=== PATIENT | male | born 1975 ===

== ENCOUNTER 2017-11-22 21:07 | Emergency (ER) | payer SELFPAY ==
[2017-11-22 21:38] VITALS: BP 107/80; PULSE 101; RESP 18; TEMP 99.1; O2SAT 98
[2017-11-22] MEDS ORDERED: Sodium Chloride 0.9% 1,000 ML IV STA (21:51)
--- NOTE | 2017-11-22 21:54 | ED PDOC ---
HPI: Abdomen Time Seen by Provider: 11/22/17 21:41 Chief Complaint (Nursing): Abdominal Pain Chief Complaint (Provider): abdominal pain History Per: Patient History/Exam Limitations: no limitations Onset/Duration Of Symptoms: Days (2) Current Symptoms Are (Timing): Still Present Location Of Pain/Discomfort: Diffuse Associated Symptoms: Nausea, Vomiting Additional Complaint(s): 42 y/o male presents with abdominal pain x 2 days. Associated vomiting x 2. Denies fever, chest pain, shortness of breath, palpitations, changes in bowel movements, urinary symptoms. Patient also reports low back pain x 1 month, with associated radiation of pain down left leg. Patient was advised by his primary doctor to see a specialist but he has not yet done so. Denies bowel/bladder incontinence, numbness/ weakness lower extremities, limitation of movemenet. Past Medical History Reviewed: Historical Data, Nursing Documentation, Vital Signs Vital Signs: Last Vital Signs Temp 99.1 F 11/22/17 21:34 Pulse 101 H 11/22/17 21:34 Resp 18 11/22/17 21:34 BP 107/80 11/22/17 21:34 Pulse Ox 98 11/23/17 00:32 - Medical History PMH: Diabetes - Surgical History Surgical History: No Surg Hx - Family History Family History: States: No Known Family Hx - Home Medications Home Medications: Ambulatory Orders Medication Instructions Recorded Famotidine [Pepcid] 20 mg PO BID #10 tab 11/23/17 Ondansetron [Zofran] 4 mg PO Q8H PRN #10 tab 11/23/17 - Allergies Allergies/Adverse Reactions: Allergies Allergy/AdvReac Type Severity Reaction Status Date / Time No Known Allergies Allergy Verified 11/22/17 21:34 Review of Systems ROS Statement: Except As Marked, All Systems Reviewed And Found Negative Gastrointestinal: Positive for: Nausea, Vomiting, Abdominal Pain Musculoskeletal: Positive for: Back Pain Physical Exam - Reviewed Nursing Documentation Reviewed: Yes Vital Signs Reviewed: Yes - Physical Exam Appears: Positive for: Well, Non-toxic, No Acute Distress Head Exam: Positive for: ATRAUMATIC, NORMAL INSPECTION, NORMOCEPHALIC Skin: Positive for: Normal Color Eye Exam: Positive for: Normal appearance ENT: Positive for: Normal ENT Inspection Cardiovascular/Chest: Positive for: Regular Rate, Rhythm Respiratory: Positive for: Normal Breath Sounds Gastrointestinal/Abdominal: Positive for: Bowel Sounds, Soft, Tenderness ( epigastric, periumbilical) Back: Positive for: Normal Inspection Extremity: Positive for: Normal ROM Neurologic/Psych: Positive for: Alert, Oriented - Laboratory Results Result Diagrams: 11/22/17 22:15 11/22/17 22:15 - ECG ECG: Positive for: Viewed By Me (reviewed by ED attending) ECG Rhythm: Positive for: Sinus Rhythm O2 Sat by Pulse Oximetry: 98 - Progress ED Course And Treament: labs, urine, ekg, ct abd/pelvis, IV fluids, ODT zofran EXAM: CT Abdomen and Pelvis With Intravenous Contrast CLINICAL HISTORY: 42 years old, male; Pain and signs and symptoms; Nausea and vomiting; Abdominal pain; Other: Back pain; Additional info: Abd pain, vomiting TECHNIQUE: Axial computed tomography images of the abdomen and pelvis with intravenous contrast. All CT scans at this facility use one or more dose reduction techniques, viz.: automated exposure control; ma/kV adjustment per patient size (including targeted exams where dose is matched to indication; i.e. head); or iterative reconstruction technique. Coronal and sagittal reformatted images were created and reviewed. CONTRAST: 95 mL of [id number] administered intravenously. COMPARISON: No relevant prior studies available. FINDINGS: Limitations: Motion artifact - mild. Lung bases: No acute findings. ABDOMEN: Liver: Unremarkable. No mass. Gallbladder and bile ducts: No calcified stones. No ductal dilation. Pancreas: No ductal dilation. No mass. Spleen: No splenomegaly. Adrenals: No mass. Kidneys and ureters: No mass. No hydronephrosis. Stomach and bowel: No definite mural thickening. No obstruction. PELVIS: Appendix: Normal caliber. No inflammation. Bladder: Unremarkable. Reproductive: Mildly enlarged prostate. ABDOMEN and PELVIS: Intraperitoneal space: No significant fluid collection. No free air. Bones/joints: Early to mild degenerative changes of hip joints. Early degenerative changes of spine. No acute fracture. Soft tissues: Small umbilical hernia containing fat. Small LEFT inguinal hernia containing fat. Vasculature: Unremarkable. No aneurysm. Lymph nodes: No pathologically enlarged lymph nodes. IMPRESSION: 1. No definite acute intraabdominal abnormality. 2. Prostate enlargement. Followup as clinically warranted. 3. Incidental/non-acute findings are described above. On re-eval, patient states he is feeling better. Tolerating PO. Patient educated on findings, discharged with rx Pepcid, Zofran Advised follow up PMD 2-3 days. Fluids. [place] diet Return precautions given Disposition - Clinical Impression Clinical Impression: Abdominal pain - Patient ED Disposition Is Patient to be Admitted: No Counseled Patient/Family Regarding: Studies Performed, Diagnosis, Need For Followup, Rx Given - Disposition Referrals: [facility] [Outside] Disposition: Routine/Home Disposition Time: 01:28 Condition: IMPROVED Prescriptions: Famotidine [Pepcid] 20 mg PO BID #10 tab Ondansetron [Zofran] 4 mg PO Q8H PRN #10 tab PRN Reason: Nausea/Vomiting Instructions: Acute Abdomen (Belly Pain), Adult (DC) Forms: App47 (English) Print Language: ICELANDIC
[2017-11-22 22:32] LABS: BASO % 0.2 % (0.0-2.0); EOS % 0.6 % (0.0-4.0); HEMOGLOBIN 13.9 g/dL (12.0-18.0); LYMPH # 0.8 K/uL (1.0-4.3); LYMPH % 13.8 % (20.0-40.0); MEAN PLATELET VOLUME 9.6 fl (7.2-11.7); MONO # 0.5 K/uL (0.0-0.8); MONO % 8.5 % (0.0-10.0); NEUT # 4.6 K/uL (1.8-7.0); NEUT % 76.9 % (50.0-75.0); NRBC % 0.1 % (0.0-0.0); RBC 4.8 Mil/uL (4.40-5.90); RED CELL DISTRIBUTION WIDTH 13.7 % (11.5-14.5); WHITE BLOOD COUNT 5.9 K/uL (4.8-10.8)
[2017-11-22 22:33] LABS: ALB/GLOB RATIO 1.2 (1.0-2.1); ALBUMIN 3.8 g/dL (3.5-5.0); ALT/SGPT 50 U/L (21-72); AST/SGOT 22 U/L (17-59); BLOOD UREA NITROGEN 19 mg/dl (9-20); GFR AFRICAN-AMERICAN > 60; GFR NON-AFRICAN AMERICAN > 60; LIPASE 82 U/L (23-300)
[2017-11-22 23:00] LABS: INR 1.2 (0.9-1.2); PARTIAL THROMBOPLASTIN TIME 50.5 Seconds (25.6-37.1); PROTHROMBIN TIME 13.6 Seconds (9.8-13.1)
[2017-11-22] MEDS ORDERED: Sodium Chloride 0.9% 50 ML IV ONE (23:16)
[2017-11-22] MEDS ORDERED: Iohexol 300 100 ML IJ ONE (23:16)
--- NOTE | 2017-11-23 00:17 | CT ---
EXAM: CT Abdomen and Pelvis With Intravenous Contrast CLINICAL HISTORY: 42 years old, male; Pain and signs and symptoms; Nausea and vomiting; Abdominal pain; Other: Back pain; Additional info: Abd pain, vomiting TECHNIQUE: Axial computed tomography images of the abdomen and pelvis with intravenous contrast. All CT scans at this facility use one or more dose reduction techniques, viz.: automated exposure control; ma/kV adjustment per patient size (including targeted exams where dose is matched to indication; i.e. head); or iterative reconstruction technique. Coronal and sagittal reformatted images were created and reviewed. CONTRAST: 95 mL of administered intravenously. COMPARISON: No relevant prior studies available. FINDINGS: Limitations: Motion artifact - mild. Lung bases: No acute findings. ABDOMEN: Liver: Unremarkable. No mass. Gallbladder and bile ducts: No calcified stones. No ductal dilation. Pancreas: No ductal dilation. No mass. Spleen: No splenomegaly. Adrenals: No mass. Kidneys and ureters: No mass. No hydronephrosis. Stomach and bowel: No definite mural thickening. No obstruction. PELVIS: Appendix: Normal caliber. No inflammation. Bladder: Unremarkable. Reproductive: Mildly enlarged prostate. ABDOMEN and PELVIS: Intraperitoneal space: No significant fluid collection. No free air. Bones/joints: Early to mild degenerative changes of hip joints. Early degenerative changes of spine. No acute fracture. Soft tissues: Small umbilical hernia containing fat. Small LEFT inguinal hernia containing fat. Vasculature: Unremarkable. No aneurysm. Lymph nodes: No pathologically enlarged lymph nodes. IMPRESSION: 1. No definite acute intraabdominal abnormality. 2. Prostate enlargement. Followup as clinically warranted. 3. Incidental/non-acute findings are described above.
--- NOTE | 2017-11-23 13:48 | CARD ---
APPROVED REPORT EKG Measurement Heart [id number] <Conclusion> Normal sinus rhythm Normal ECG
== END 2017-11-23 01:35 | disposition home or self-care (01) ==
LOC: H.ER 21:07 → EDBD 21:07 → H.ER 11-23 01:35
DX: R10.9 Unspecified abdominal pain (principal); E11.9 Type 2 diabetes mellitus without complications; N40.0 Benign prostatic hyperplasia without lower urinary tract symptoms
CPT/HCPCS: 74177; 80053; 82948; 83690; 85025; 85610; 85730; 93005; 99283; J7040; Q9967

== ENCOUNTER 2018-02-21 01:51 | Emergency (ER) | payer SELFPAY ==
[2018-02-21 02:02] VITALS: RESP 18; TEMP 97.8; O2SAT 98
[2018-02-21] MEDS ORDERED: Glucagon Recombinant 1 mg Inj IM PRN (02:25)
[2018-02-21] MEDS ORDERED: Dextrose 50% SYRINGE Inj (50 ml) IV PRN (02:25)
[2018-02-21] MEDS ORDERED: Naproxen 500 MG TAB PO ONE ×2 (02:27→02:49)
--- NOTE | 2018-02-21 02:30 | ED PDOC ---
Lower Extremity Pain/Injury Chief Complaint (Provider): L lower extremity pain History Per: Patient History/Exam Limitations: language barrier (Kinyarwanda) Onset/Duration Of Symptoms: Days (2 weeks) Current Symptoms Are (Timing): Still Present Severity: Moderate Pain Scale Rating Of: 8 Legs Front+Back: 1 - radiating pain Additional Complaint(s): 42 yo M with pmhx of DM2 presents to the ED with persistent L lower extremity pain. He reports that approximately 2 weeks prior, while lifting a 100 lb object and walking, he noticed sudden L lumbar pain radiating down is L lower extremity to his foot. Pain is 8/10, sharp in character. Aggravated with rest and walking. Mildly alleviated with Tylenol 500 mg PRN. He denies recent falls or direct trauma to his back. He is able to walk with no major gait disturbance. He denies saddle anesthesia, urinary or bowel incontinence, CP/SOB/ N/V. PMD: Dr. Jarrett at [facility] [place] pmhx: DM surg: none famhx: none Soc: denies smoking or illicit drugs; reports drinking approx 2 beers, twice a month. Lives at home with family NKDA Rx: Metformin 500 mg BID, Insulin lantus 16 u/day; Gabapentin 300 mg BID - Hip Description Of Injury: Other (Walking and carrying 100 lb object) <Chema Castrejon - Last Filed: 02/21/18 04:23> <Jenny Gallagher - Last Filed: 02/21/18 05:28> Chief Complaint (Nursing): Lower Extremity Problem/Injury Past Medical History Vital Signs: Last Vital Signs Temp 97.8 F 02/21/18 01:56 Pulse 76 02/21/18 01:56 Resp 18 02/21/18 01:56 BP 124/82 02/21/18 01:56 Pulse Ox 98 02/21/18 01:56 - Medical History PMH: Diabetes - Surgical History Surgical History: No Surg Hx - Family History Family History: States: No Known Family Hx - Living Arrangements Living Arrangements: With Family - Social History Current smoker - smoking cessation education provided: No Alcohol: Social (2 beers a month) Drugs: Denies <Chema Castrejon Last Filed: 02/21/18 04:23> Reviewed: Historical Data, Nursing Documentation, Vital Signs Vital Signs: Last Vital Signs Temp 97.8 F 02/21/18 04:45 Pulse 75 02/21/18 04:45 Resp 18 02/21/18 04:45 BP 104/71 02/21/18 04:45 Pulse Ox 98 02/21/18 04:45 <Jenny Gallagher Vonda - Last Filed: 02/21/18 05:28> - Home Medications Home Medications: Ambulatory Orders Medication Instructions Recorded Famotidine [Pepcid] 20 mg PO BID #10 tab 11/23/17 Ondansetron [Zofran] 4 mg PO Q8H PRN #10 tab 11/23/17 Gabapentin 300 mg PO BID #14 capsule 02/21/18 Insulin Glargine,Hum.rec.anlog 100 unit SQ DAILY #1 vial 02/21/18 [Lantus] Naproxen 500 mg PO PRN PRN #7 tab 02/21/18 metFORMIN [glucOPHAGE] 500 mg PO BID #14 tab 02/21/18 - Allergies Allergies/Adverse Reactions: Allergies Allergy/AdvReac Type Severity Reaction Status Date / Time No Known Allergies Allergy Verified 11/22/17 21:34 Review of Systems Constitutional: Positive for: Weakness Cardiovascular: Negative for: Chest Pain Respiratory: Negative for: Shortness of Breath Gastrointestinal: Negative for: Nausea, Vomiting Musculoskeletal: Positive for: Back Pain, Leg Pain <Chema Castrejon Last Filed: 02/21/18 04:23> ROS Statement: Except As Marked, All Systems Reviewed And Found Negative <Jenny Gallagher Vonda - Last Filed: 02/21/18 05:28> Physical Exam - Reviewed Vital Signs Reviewed: Yes - Physical Exam Appears: Positive for: Well, Non-toxic, No Acute Distress Head Exam: Positive for: ATRAUMATIC, NORMAL INSPECTION Skin: Positive for: Normal Color, Warm, Dry Eye Exam: Positive for: EOMI Neck: Positive for: Painless ROM Cardiovascular/Chest: Positive for: Regular Rate, Rhythm. Negative for: Murmur Respiratory: Positive for: Normal Breath Sounds. Negative for: Wheezing Gastrointestinal/Abdominal: Positive for: Normal Exam, Bowel Sounds, Soft. Negative for: Tenderness Back: Positive for: Other (L lumbar tenderness to palpation; no notible step offs). Negative for: L CVA Tenderness, R CVA Tenderness Extremity: Positive for: Tenderness (L lumbar to posterior or L leg. ), Capillary Refill, Other (Good ROM slightly limited 2/2 pain; Positive for straight leg raise at 30 degrees). Negative for: Pedal Edema, Calf Tenderness, Swelling DTR - Knee (R): 2+ DTR - Knee (L): 2+ DTR - Ankle (R): 2+ DTR - Ankle (L): 2+ Neurologic/Psych: Positive for: Alert, agricultural equipment operator II-XII, Oriented, Gait <Chema Castrejon - Last Filed: 02/21/18 04:23> - Reviewed Nursing Documentation Reviewed: Yes <Jenny Gallagher - Last Filed: 02/21/18 05:28> - ECG O2 Sat by Pulse Oximetry: 98 - Progress ED Course And Treament: 42 yo M with pmhx of DM presents with L lumbar pain radiating down lower extremity. Lumbar pain: ddx spinal stenosis, disc herniation -XR spine -Naproxen 500 mg DM: accucheck -Insulin regular 8 U 04:23 Pt resting well in bed. XR reviewed Diabetes education extensively reviewed with patient Discharged with 1 week supply of stated meds and Naproxen PRN Pt to f/u with Dr. Jarrett in [address] Aileen Castrejon MD PGY2 <Chema Castrejon - Last Filed: 02/21/18 04:23> Disposition - Patient ED Disposition Is Patient to be Admitted: No - Disposition Disposition: Routine/Home Disposition Time: 04:26 <Chema Castrejon - Last Filed: 02/21/18 04:23> Counseled Patient/Family Regarding: Studies Performed, Diagnosis, Need For Followup <Jenny Gallagher - Last Filed: 02/21/18 05:28> - Clinical Impression Clinical Impression: Lumbar pain with radiation down left leg, Hyperglycemia - Disposition Referrals: Juan David Liz MD [Primary Care Provider] - Condition: GOOD Additional Instructions: Diabetes education extensively reviewed with patient Discharged with 1 week supply of stated meds and Naproxen PRN Pt to f/u with Dr. Jarrett in 3 days. Prescriptions: Gabapentin 300 mg PO BID #14 capsule Insulin Glargine,Hum.rec.anlog [Lantus] 100 unit SQ DAILY #1 vial metFORMIN [glucOPHAGE] 500 mg PO BID #14 tab Naproxen 500 mg PO PRN PRN #7 tab PRN Reason: Pain, Moderate (4-7) Instructions: Radiculopathy, Hyperglycemia, Adult (DC) Print Language: MALAY
[2018-02-21] MEDS ORDERED: Insulin Regular 100 units/ml SC SCH ×2 (02:35→07:30)
[2018-02-21] MEDS ORDERED: Insulin Regular 100 units/ml ONE (02:50)
[2018-02-21 04:46] VITALS: BP 104/71; PULSE 75
--- NOTE | 2018-02-21 08:56 | RAD ---
Date of service: 02/21/2018 PROCEDURE: Radiographs of the Lumbar Spine. HISTORY: L lumbar pain radiating to lower extremity COMPARISON: No prior. FINDINGS: BONES: Normal alignment. No listhesis. No fracture. DISC SPACES: Mild multilevel degenerative spondylosis appreciate the mid to inferior lumbar levels. Mild disc height loss at L5-S1 indicates degenerative disease as well. Remaining intervertebral disc heights are normal. OTHER FINDINGS: Limited degenerative sacroiliac joint changes are identified bilaterally. IMPRESSION: Limited multilevel degenerative changes seen at the mid inferior lumbar spine without fracture or spondylolisthesis appreciated. Limited bilateral sacroiliac joint degenerative change are also noted, bilaterally.
== END 2018-02-21 04:48 | disposition home or self-care (01) ==
LOC: H.ER 01:51
DX: E11.65 Type 2 diabetes mellitus with hyperglycemia (principal); Z79.4 Long term (current) use of insulin; M54.5 Low back pain; M79.605 Pain in left leg